=== PATIENT | male | born 1980 | race African-American/Black ===

== ENCOUNTER 2018-01-05 09:33 | Observation (INO) | payer OTHER ==
[2018-01-05 12:14] LABS: ADD MAN DIFF? NO
[2018-01-05 12:18] LABS: WHITE BLOOD COUNT 10.2 10^3/ul (4.8-10.8)
[2018-01-05 12:18] LABS: BASOPHIL # 0.1 10^3/ul (0.0-0.1); BASOPHILS % 0.8 % (0.0-2.0); EOSINOPHILS % 0.3 % (0.0-7.0); HEMATOCRIT 30.5 % (42.0-52.0); HEMOGLOBIN 10.2 g/dl (14.0-18.0); LYMPHOCYTES # 1.3 10^3/ul (0.8-2.9); LYMPHOCYTES % 12.4 % (15.0-51.0); MEAN CORPUSCULAR HEMOGLOBIN 21.3 pg (29.0-33.0); MEAN CORPUSCULAR HGB CONC 33.4 g/dl (32.0-37.0); MEAN CORPUSCULAR VOLUME 63.5 fl (82.0-101.0); MEAN PLATELET VOLUME 10.3 fl (7.4-10.4); MONOCYTE # 0.7 10^3/ul (0.3-0.9); MONOCYTES % 6.9 % (0.0-11.0); NEUTROPHIL # 8.1 10^3/ul (1.6-7.5); NEUTROPHILS % 79.2 % (39.0-77.0); NUCLEATED RED BLOOD CELLS # 0.1 10^3/ul (0.0-0.0); NUCLEATED RED BLOOD CELLS% 1.3 /100WBC (0.0-0.0); PLATELET COUNT 623 10^3/UL (140-415); RED CELL DISTRIBUTION WIDTH 21.4 % (11.5-14.5); RETICULOCYTE COUNT # 0.095 X10^6 (0.020-0.110)
[2018-01-05] MEDS: SOD CHLORIDE 0.9% 2,000 ML IV (12:18)
[2018-01-05] MEDS: HYDROmorphONE 2 MG/ML SYG IV ×2 (12:22→15:34)
[2018-01-05] MEDS: DIPHENHYDRAMINE 50 MG INJ IV ×2 (12:22→15:33)
[2018-01-05 12:29] LABS: ADD UMIC NO; UR ASCORBIC ACID NEGATIVE (NEGATIVE); UR BILIRUBIN (Dip) NEGATIVE (NEGATIVE); UR BLOOD (Dip) NEGATIVE (NEGATIVE); UR CLARITY CLEAR (CLEAR); UR COLOR COLORLESS (YELLOW); UR GLUCOSE (Dip) 3+ mg/dL (NEGATIVE); UR KETONES (Dip) TRACE mg/dL (NEGATIVE); UR LEUKOCYTE ESTERASE (Dip) NEGATIVE Leu/ul (NEGATIVE); UR NITRITE (Dip) NEGATIVE (NEGATIVE); UR SPECIFIC GRAVITY (Dip) 1.018 (1.003-1.030); UR TOTAL PROTEIN (Dip) NEGATIVE (NEGATIVE); UR UROBILINOGEN (Dip) NEGATIVE (NEGATIVE)
[2018-01-05] MEDS: LIDOCAINE 1% (MPF) 5 ML VIAL SC (12:30)
[2018-01-05 12:37] LABS: ALANINE AMINOTRANSFERASE 38 IU/L (13-69); ALBUMIN 4.2 g/dl (3.3-4.9); ALBUMIN/GLOBULIN RATIO 1.02; ALKALINE PHOSPHATASE 147 IU/L (42-121); ANION GAP 17 (8-16); ASPARTATE AMINO TRANSFERASE 26 IU/L (15-46); BILIRUBIN,INDIRECT 0.4 mg/dl (0-1.1); BILIRUBIN,TOTAL 0.4 mg/dl (0.2-1.3); BLOOD UREA NITROGEN 24 mg/dl (7-20); CALCIUM 9.6 mg/dl (8.4-10.2); CARBON DIOXIDE 22 mmol/L (21-31); CHLORIDE 97 mmol/L (97-110); CREATININE 1.06 mg/dl (0.61-1.24); PHOSPHORUS 3.8 mg/dl (2.5-4.9); POTASSIUM 5.2 mmol/L (3.5-5.1); SODIUM 131 mmol/L (135-144); TOTAL PROTEIN 8.3 g/dl (6.1-8.1)
[2018-01-05 12:49] LABS: GLUCOSE 704 mg/dl (70-220)
[2018-01-05 13:38] LABS: AADO2 Venous 50.5 mmHg; Allen Test ACCEPTAB; MODE ROOM AIR; MetHgb Venous 0.4 %; Sample Type Blood venous; Site Right Radial; Venous COHb 2.1 %; Venous Fraction OxyHgb 78.7 %; Venous Oxygen Sat 80.7 mmHG (55.0-75.0); Venous Total Hemglobin 10.4 g/dl
[2018-01-05] MEDS ORDERED: GLUCOSE GEL 15 GRAM TUBE PO ×4 (14:00→17:30)
[2018-01-05] MEDS ORDERED: DEXTROSE 50% 50 ML SYRINGE IV ×4 (14:00→17:30)
[2018-01-05] MEDS ORDERED: GLUCAGON 1 MG INJ IM ×2 (14:00→17:30)
[2018-01-05] MEDS ORDERED: GLUCOSE GEL 15 GRAM TUBE BUCCAL ×2 (14:00→17:30)
[2018-01-05] MEDS ORDERED: ONDANSETRON 4 MG INJ (15:28)
[2018-01-05] MEDS: ONDANSETRON 4 MG INJ IV (15:40)
[2018-01-05] MEDS ORDERED: ACETAMINOPHEN 325 MG TAB PO (16:00)
[2018-01-05] MEDS ORDERED: ONDANSETRON 4 MG INJ IV ×2 (16:00→18:01)
[2018-01-05] MEDS: INSULIN LISPRO 100 UNIT/ML VIAL SC (16:19)
[2018-01-05] MEDS ORDERED: NACL 0.9% 3 ML SYG IV (17:30)
[2018-01-05] MEDS ORDERED: INSULIN ASPART [NOVOLOG] 3 ML PEN SC ×2 (18:00)
[2018-01-05] MEDS ORDERED: HYDROCODONE/APAP (5/325) TAB NGT (18:30)
[2018-01-05] MEDS: HYDROmorphONE 1 MG/ML SYG IV (18:37)
[2018-01-05] MEDS ORDERED: INSULIN GLARGINE [LANtus] 3 ML PEN SC (20:00)
[2018-01-06] MEDS ORDERED: ENOXAPARIN 30 MG/0.3 ML SYG SC (09:00)
== END 2018-01-05 18:49 | disposition left against medical advice (07) ==
LOC: E/R 18:49 → MS4 01-07 23:33 → E/R 09:33 → MS4 15:33 → E/R 18:49
PROVIDERS: Internal Medicine
DX: D57.1 Sickle-cell disease without crisis (principal); E11.65 Type 2 diabetes mellitus with hyperglycemia; Z79.4 Long term (current) use of insulin
CPT/HCPCS: 36415; 71045; 80053; 81003; 82803; 82962; 83735; 84100; 85025; 85045; 93005; 96372; 96374; 96375; 96376; 99217; 99285-25

== ENCOUNTER 2018-01-18 23:02 | Inpatient (IN) | payer OTHER ==
[2018-01-18] MEDS: SOD CHLORIDE 0.9% 1,000 ML IV (23:27)
[2018-01-18] MEDS ORDERED: HYDROmorphONE 1 MG/ML SYG IV (23:27)
[2018-01-18] MEDS: LACTATED RINGER'S 1,000 ML IV (23:35)
[2018-01-18] MEDS: ONDANSETRON 4 MG INJ IV (23:35)
[2018-01-18] MEDS: DIPHENHYDRAMINE 50 MG INJ IV (23:35)
[2018-01-18] MEDS: HYDROmorphONE 0.5 MG/0.5 ML SYG IV ×2 (23:38)
[2018-01-18] MEDS: INSULIN LISPRO 100 UNIT/ML VIAL SC (23:45)
[2018-01-18 23:49] LABS: ADD MAN DIFF? NO
[2018-01-18 23:55] LABS: ABNORMAL IP MESSAGE 1; BASOPHIL # 0.1 10^3/ul (0.0-0.1); BASOPHILS % 0.6 % (0.0-2.0); EOSINOPHILS # 0.2 10^3/ul (0.0-0.5); EOSINOPHILS % 1.4 % (0.0-7.0); HEMATOCRIT 33.6 % (42.0-52.0); HEMOGLOBIN 11.1 g/dl (14.0-18.0); LYMPHOCYTES # 1.8 10^3/ul (0.8-2.9); LYMPHOCYTES % 16.5 % (15.0-51.0); MEAN CORPUSCULAR HEMOGLOBIN 21.7 pg (29.0-33.0); MEAN CORPUSCULAR VOLUME 65.6 fl (82.0-101.0); MONOCYTE # 0.7 10^3/ul (0.3-0.9); MONOCYTES % 6.4 % (0.0-11.0); NEUTROPHIL # 8.3 10^3/ul (1.6-7.5); NEUTROPHILS % 74.9 % (39.0-77.0); NUCLEATED RED BLOOD CELLS # 0.3 10^3/ul (0.0-0.0); PLATELET COUNT 849 10^3/UL (140-415); POSITIVE DIFF @See below; RED BLOOD COUNT 5.12 10^6/ul (4.70-6.10); RED CELL DISTRIBUTION WIDTH 22.5 % (11.5-14.5); RETICULOCYTE COUNT # 0.108 X10^6 (0.020-0.110); RETICULOCYTE COUNT % 2.1 % (0.5-1.5); RETICULOCYTE RBC 5.12
[2018-01-19 00:11] LABS: ALANINE AMINOTRANSFERASE 37 IU/L (13-69); ALBUMIN/GLOBULIN RATIO 1.16; ALKALINE PHOSPHATASE 154 IU/L (42-121); ANION GAP 20 (8-16); ASPARTATE AMINO TRANSFERASE 35 IU/L (15-46); BILIRUBIN,INDIRECT 0.5 mg/dl (0-1.1); BILIRUBIN,TOTAL 0.5 mg/dl (0.2-1.3); BLOOD UREA NITROGEN 15 mg/dl (7-20); CALCIUM 10.3 mg/dl (8.4-10.2); CARBON DIOXIDE 27 mmol/L (21-31); CHLORIDE 93 mmol/L (97-110); CREATININE 1.62 mg/dl (0.61-1.24); POTASSIUM 5.3 mmol/L (3.5-5.1); SODIUM 135 mmol/L (135-144); TOTAL PROTEIN 9.3 g/dl (6.1-8.1)
[2018-01-19 00:33] LABS: GLUCOSE 665 mg/dl (70-220)
[2018-01-19] MEDS: HYDROmorphONE 1 MG/ML SYG IV (04:04)
[2018-01-19] MEDS: DIPHENHYDRAMINE 50 MG INJ IV (04:24)
[2018-01-19] MEDS ORDERED: NACL 0.9% 3 ML SYG IV (05:00)
[2018-01-19] MEDS ORDERED: ONDANSETRON 4 MG INJ IV (05:00)
[2018-01-19] MEDS ORDERED: ALBUTEROL/IPRATROPIUM (NEB) 3 ML AMP HHN (05:00)
[2018-01-19] MEDS ORDERED: traMADol 50 MG TAB PO (05:00)
[2018-01-19] MEDS ORDERED: ACETAMINOPHEN 325 MG TAB PO (05:00)
[2018-01-19] MEDS ORDERED: HYDROmorphONE 2 MG TAB PO (05:00)
[2018-01-19] MEDS ORDERED: GLUCAGON 1 MG INJ IM (05:30)
[2018-01-19] MEDS ORDERED: GLUCOSE GEL 15 GRAM TUBE BUCCAL (05:30)
[2018-01-19] MEDS ORDERED: GLUCOSE GEL 15 GRAM TUBE PO ×2 (05:30)
[2018-01-19] MEDS ORDERED: DEXTROSE 50% 50 ML SYRINGE IV ×2 (05:30)
[2018-01-19 06:30] LABS: ADD MAN DIFF? NO
[2018-01-19 06:41] LABS: WHITE BLOOD COUNT 9.3 10^3/ul (4.8-10.8)
[2018-01-19 06:41] LABS: BASOPHIL # 0.1 10^3/ul (0.0-0.1); BASOPHILS % 0.9 % (0.0-2.0); EOSINOPHILS # 0.3 10^3/ul (0.0-0.5); EOSINOPHILS % 2.7 % (0.0-7.0); HEMATOCRIT 26.3 % (42.0-52.0); HEMOGLOBIN 8.7 g/dl (14.0-18.0); LYMPHOCYTES # 1.7 10^3/ul (0.8-2.9); LYMPHOCYTES % 18.1 % (15.0-51.0); MEAN CORPUSCULAR HEMOGLOBIN 21.5 pg (29.0-33.0); MEAN CORPUSCULAR HGB CONC 33.1 g/dl (32.0-37.0); MEAN CORPUSCULAR VOLUME 64.9 fl (82.0-101.0); MEAN PLATELET VOLUME 10.2 fl (7.4-10.4); MONOCYTES % 10.2 % (0.0-11.0); NEUTROPHIL # 6.3 10^3/ul (1.6-7.5); NEUTROPHILS % 67.8 % (39.0-77.0); NUCLEATED RED BLOOD CELLS # 0.3 10^3/ul (0.0-0.0); PLATELET COUNT 645 10^3/UL (140-415); RED BLOOD COUNT 4.05 10^6/ul (4.70-6.10); RED CELL DISTRIBUTION WIDTH 21.7 % (11.5-14.5)
[2018-01-19] MEDS: NA POLYST SULFON 15 GM/60 ML BTL PO (06:46)
[2018-01-19 07:03] LABS: ALANINE AMINOTRANSFERASE 31 IU/L (13-69); ALBUMIN 3.4 g/dl (3.3-4.9); ALBUMIN/GLOBULIN RATIO 1.09; ALKALINE PHOSPHATASE 93 IU/L (42-121); ANION GAP 12 (8-16); ASPARTATE AMINO TRANSFERASE 24 IU/L (15-46); BILIRUBIN,INDIRECT 0.3 mg/dl (0-1.1); BILIRUBIN,TOTAL 0.3 mg/dl (0.2-1.3); BLOOD UREA NITROGEN 18 mg/dl (7-20); CALCIUM 9.3 mg/dl (8.4-10.2); CARBON DIOXIDE 31 mmol/L (21-31); CHLORIDE 102 mmol/L (97-110); CREATININE 1.18 mg/dl (0.61-1.24); GLUCOSE 331 mg/dl (70-220); MAGNESIUM 1.7 mg/dl (1.7-2.5); PHOSPHORUS 4.4 mg/dl (2.5-4.9); POTASSIUM 4.5 mmol/L (3.5-5.1); SODIUM 140 mmol/L (135-144); TOTAL PROTEIN 6.5 g/dl (6.1-8.1)
[2018-01-19] MEDS: INSULIN ASPART [NOVOLOG] 3 ML PEN SC ×8 (08:34→20:11)
[2018-01-19] MEDS: INSULIN GLARGINE [LANtus] 3 ML PEN SC (08:36)
[2018-01-19 09:57] LABS: SODIUM,URINE RANDOM 61 mmol/L (30-90)
[2018-01-19 09:57] LABS: POTASSIUM,URINE RANDOM 10.5 mmol/L (25-125)
[2018-01-19] MEDS: HYDROmorphONE 2 MG/ML SYG IV ×4 (10:10→23:44)
[2018-01-19] MEDS: METHADONE 5 MG TAB PO (13:39)
[2018-01-19] MEDS ORDERED: HYDROmorphONE 4 MG/ML SYG IV (14:30)
[2018-01-19] MEDS: DIPHENHYDRAMINE 25 MG CAP PO (15:26)
[2018-01-19] MEDS: SOD CHLORIDE 0.9% 1,000 ML IV ×2 (15:30→22:12)
[2018-01-19 17:31] LABS: IRON 54 ug/dl (35-150)
[2018-01-19 17:40] LABS: % IRON SATURATION 13 % SAT (22-52); TOTAL IRON BINDING CAPACITY 430 ug/dl (241-421)
[2018-01-19 18:06] LABS: FERRITIN 25.3 ng/ml (17.9-464.0)
[2018-01-19 19:45] LABS: SICKLE CELL SCREEN POSITIVE (NEGATIVE)
[2018-01-20] MEDS: ACCU-CHEK XX (01:41)
[2018-01-20] MEDS: HYDROmorphONE 2 MG/ML SYG IV ×2 (04:15→08:09)
[2018-01-20 05:47] LABS: ADD MAN DIFF? NO
[2018-01-20 05:52] LABS: BASOPHIL # 0.1 10^3/ul (0.0-0.1); BASOPHILS % 0.8 % (0.0-2.0); EOSINOPHILS # 0.3 10^3/ul (0.0-0.5); EOSINOPHILS % 3.9 % (0.0-7.0); HEMATOCRIT 26.2 % (42.0-52.0); HEMOGLOBIN 8.7 g/dl (14.0-18.0); MEAN CORPUSCULAR HEMOGLOBIN 21.6 pg (29.0-33.0); MEAN CORPUSCULAR HGB CONC 33.2 g/dl (32.0-37.0); MEAN CORPUSCULAR VOLUME 65.2 fl (82.0-101.0); MEAN PLATELET VOLUME 9.8 fl (7.4-10.4); MONOCYTE # 0.9 10^3/ul (0.3-0.9); MONOCYTES % 11.4 % (0.0-11.0); NEUTROPHIL # 3.7 10^3/ul (1.6-7.5); NEUTROPHILS % 45.6 % (39.0-77.0); NUCLEATED RED BLOOD CELLS # 0.3 10^3/ul (0.0-0.0); NUCLEATED RED BLOOD CELLS% 3.8 /100WBC (0.0-0.0); PLATELET COUNT 630 10^3/UL (140-415); RED BLOOD COUNT 4.02 10^6/ul (4.70-6.10); RED CELL DISTRIBUTION WIDTH 21.5 % (11.5-14.5)
[2018-01-20 06:21] LABS: ALANINE AMINOTRANSFERASE 32 IU/L (13-69); ALBUMIN 3.2 g/dl (3.3-4.9); ALKALINE PHOSPHATASE 77 IU/L (42-121); ANION GAP 11 (8-16); ASPARTATE AMINO TRANSFERASE 20 IU/L (15-46); BILIRUBIN,INDIRECT 0.3 mg/dl (0-1.1); BILIRUBIN,TOTAL 0.3 mg/dl (0.2-1.3); BLOOD UREA NITROGEN 17 mg/dl (7-20); CARBON DIOXIDE 28 mmol/L (21-31); CHLORIDE 105 mmol/L (97-110); CREATININE 0.94 mg/dl (0.61-1.24); GLUCOSE 284 mg/dl (70-220); MAGNESIUM 1.8 mg/dl (1.7-2.5); PHOSPHORUS 3.2 mg/dl (2.5-4.9); POTASSIUM 4.2 mmol/L (3.5-5.1); SODIUM 140 mmol/L (135-144); TOTAL PROTEIN 6.4 g/dl (6.1-8.1)
[2018-01-20] MEDS: SOD CHLORIDE 0.9% 1,000 ML IV (06:34)
[2018-01-20] MEDS: INSULIN ASPART [NOVOLOG] 3 ML PEN SC ×2 (08:05→08:06)
[2018-01-20] MEDS: INSULIN GLARGINE [LANtus] 3 ML PEN SC (08:06)
[2018-01-21 04:48] LABS: HEMATOCRIT 40.3 % (38.5-50.0); MCH 20.7 pg (27.0-33.0); MCV 75.8 fL (80.0-100.0); RDW 22.7 % (11.0-15.0); RED BLOOD CELL COUNT 5.32 Million/uL (4.20-5.80)
== END 2018-01-20 11:17 | disposition home or self-care (01) | DRG 812 ==
LOC: E/R 23:02 → MS3 01-19 04:57
PROVIDERS: Internal Medicine
DX: D57.00 Hb-SS disease with crisis, unspecified (principal); N17.9 Acute kidney failure, unspecified; E11.65 Type 2 diabetes mellitus with hyperglycemia; Z79.4 Long term (current) use of insulin; M25.462 Effusion, left knee; Z76.5 Malingerer [conscious simulation]
CPT/HCPCS: 80053; 82436; 82728; 82962; 83020; 83540; 83735; 84100; 84133; 84300; 85025; 85045; 85660; 93005; 96372; 96374; 96375; 96376; 99291-25

== ENCOUNTER 2018-03-10 13:39 | Emergency (ER) | payer OTHER ==
[2018-03-10] MEDS ORDERED: DIPHENHYDRAMINE 50 MG INJ (15:05)
[2018-03-10 15:14] LABS: ADD MAN DIFF? NO
[2018-03-10 15:17] LABS: ABNORMAL IP MESSAGE 1; BASOPHIL # 0.1 10^3/ul (0.0-0.1); BASOPHILS % 1.4 % (0.0-2.0); EOSINOPHILS % 0.7 % (0.0-7.0); HEMATOCRIT 26.3 % (42.0-52.0); HEMOGLOBIN 8.9 g/dl (14.0-18.0); LYMPHOCYTES # 1.2 10^3/ul (0.8-2.9); LYMPHOCYTES % 28.7 % (15.0-51.0); MEAN CORPUSCULAR HEMOGLOBIN 23.2 pg (29.0-33.0); MEAN CORPUSCULAR HGB CONC 33.8 g/dl (32.0-37.0); MEAN CORPUSCULAR VOLUME 68.5 fl (82.0-101.0); MEAN PLATELET VOLUME 8.7 fl (7.4-10.4); MONOCYTE # 0.4 10^3/ul (0.3-0.9); MONOCYTES % 8.5 % (0.0-11.0); NEUTROPHIL # 2.6 10^3/ul (1.6-7.5); NEUTROPHILS % 60.5 % (39.0-77.0); NUCLEATED RED BLOOD CELLS # 0.3 10^3/ul (0.0-0.0); NUCLEATED RED BLOOD CELLS% 6.6 /100WBC (0.0-0.0); PLATELET COUNT 233 10^3/UL (140-415); POSITIVE DIFF @See below; RED BLOOD COUNT 3.84 10^6/ul (4.70-6.10)
[2018-03-10 15:17] LABS: WHITE BLOOD COUNT 4.2 10^3/ul (4.8-10.8)
[2018-03-10] MEDS: HYDROmorphONE 1 MG/5 ML IV SYRINGE IV ×2 (15:26→16:22)
[2018-03-10] MEDS: SOD CHLORIDE 0.9% 2,000 ML IV (15:26)
[2018-03-10] MEDS: DIPHENHYDRAMINE 50 MG INJ IV ×2 (15:26→16:22)
[2018-03-10] MEDS: ONDANSETRON 4 MG INJ IV (15:26)
[2018-03-10 15:30] LABS: ANION GAP 13 (8-16); BLOOD UREA NITROGEN 19 mg/dl (7-20); CALCIUM 9.2 mg/dl (8.4-10.2); CARBON DIOXIDE 26 mmol/L (21-31); CHLORIDE 100 mmol/L (97-110); CREATININE 0.94 mg/dl (0.61-1.24); POTASSIUM 4.9 mmol/L (3.5-5.1); SODIUM 134 mmol/L (135-144)
[2018-03-10 15:33] LABS: LACTIC ACID 1.5 mmol/L (0.5-2.0)
[2018-03-10 15:34] LABS: GLUCOSE 540 mg/dl (70-220)
[2018-03-10] MEDS: INSULIN LISPRO 100 UNIT/ML VIAL SC (16:21)
== END 2018-03-10 16:51 | disposition home or self-care (01) ==
LOC: E/R 13:39
DX: D57.00 Hb-SS disease with crisis, unspecified (principal); E11.65 Type 2 diabetes mellitus with hyperglycemia; I10 Essential (primary) hypertension; Z79.4 Long term (current) use of insulin
CPT/HCPCS: 36415; 71045; 80048; 83605; 85025; 85660; 96372; 96374; 96375; 96376; 99284-25

== ENCOUNTER 2018-03-29 10:27 | Emergency (ER) | payer OTHER ==
[2018-03-29] MEDS ORDERED: LACTATED RINGER'S 1,000 ML IV (10:35)
[2018-03-29] MEDS ORDERED: SOD CHLORIDE 0.9% 2,000 ML IV (10:35)
== END 2018-03-29 12:03 | disposition home or self-care (01) ==
LOC: E/R 10:27
DX: G89.29 Other chronic pain (principal); E11.65 Type 2 diabetes mellitus with hyperglycemia; I10 Essential (primary) hypertension; Z79.4 Long term (current) use of insulin
CPT/HCPCS: 82962; 99284-25

== ENCOUNTER 2018-04-12 16:53 | Inpatient (IN) | payer OTHER ==
[2018-04-12] MEDS: HYDROmorphONE 1 MG/5 ML IV SYRINGE IV ×2 (17:02→19:03)
[2018-04-12] MEDS: ONDANSETRON 4 MG INJ IV ×2 (17:02→19:04)
[2018-04-12] MEDS: SOD CHLORIDE 0.9% 1,000 ML IV (17:02)
[2018-04-12] MEDS: DIPHENHYDRAMINE 50 MG INJ IV ×2 (18:15→19:04)
[2018-04-12 18:20] LABS: ABNORMAL IP MESSAGE 1; HEMATOCRIT 27.3 % (42.0-52.0); HEMOGLOBIN 9.5 g/dl (14.0-18.0); MEAN CORPUSCULAR HEMOGLOBIN 26.7 pg (29.0-33.0); MEAN CORPUSCULAR HGB CONC 34.8 g/dl (32.0-37.0); MEAN CORPUSCULAR VOLUME 76.7 fl (82.0-101.0); MEAN PLATELET VOLUME 11.4 fl (7.4-10.4); PLATELET COUNT 862 10^3/UL (140-415); POSITIVE DIFF @See below; RED BLOOD COUNT 3.56 10^6/ul (4.70-6.10); RED CELL DISTRIBUTION WIDTH 26.7 % (11.5-14.5); RETICULOCYTE COUNT # 0.148 X10^6 (0.020-0.110); RETICULOCYTE COUNT % 4.2 % (0.5-1.5); RETICULOCYTE RBC 3.56
[2018-04-12 18:20] LABS: WHITE BLOOD COUNT 8.2 10^3/ul (4.8-10.8)
[2018-04-12 18:25] LABS: ADD MAN DIFF? YES
[2018-04-12 18:44] LABS: ALANINE AMINOTRANSFERASE 26 IU/L (13-69); ALBUMIN 4.5 g/dl (3.3-4.9); ALBUMIN/GLOBULIN RATIO 1.21; ALKALINE PHOSPHATASE 147 IU/L (42-121); ANION GAP 20 (8-16); ASPARTATE AMINO TRANSFERASE 18 IU/L (15-46); BILIRUBIN,INDIRECT 0.5 mg/dl (0-1.1); BILIRUBIN,TOTAL 0.5 mg/dl (0.2-1.3); BLOOD UREA NITROGEN 29 mg/dl (7-20); CARBON DIOXIDE 23 mmol/L (21-31); CHLORIDE 95 mmol/L (97-110); CREATININE 1.32 mg/dl (0.61-1.24); POTASSIUM 5.8 mmol/L (3.5-5.1); SODIUM 132 mmol/L (135-144); TOTAL PROTEIN 8.2 g/dl (6.1-8.1)
[2018-04-12 18:46] LABS: INR 0.89; PARTIAL THROMBOPLASTIN TIME 25.6 Sec (25.0-35.0); PROTIME 12.1 Sec (11.9-14.9); PT RATIO 0.9
[2018-04-12 19:00] LABS: GLUCOSE 819 mg/dl (70-220)
[2018-04-12 19:02] LABS: ANISOCYTOSIS 2+ (0-0); BASOPHILS % (M) 1 % (0-2); ERYTHROBLAST% (NRBC) (M) 7 % (0-0); HYPOCHROMASIA 2+ (0-0); LYMPHOCYTES #M 2.1 10^3/ul (0.8-2.9); LYMPHOCYTES % (M) 26 % (15-51); MICROCYTOSIS 2+ (0-0); MONOCYTE #M 0.2 10^3/ul (0.3-0.9); MONOCYTES % (M) 3 % (0-11); PLATELET ESTIMATE INCREASED; POLYCHROMASIA 1+ (0-0); SEGMENTED NEUTROPHILS (M) % 70 % (39-77); SMUDGE%M 3 % (0-0)
[2018-04-12 19:28] LABS: AADO2 Arterial 33.6 mmHg (7.0-24.0); Allen Test ACCEPTAB; Arterial Base Excess -3.7 mmol/L (-3.0-3); Arterial Blood Gas Oxygen Sat 98.1 mmHG (95.0-98.0); Arterial Fraction of Oxyhgb 95.7 % (93.0-99.0); Arterial HCO3 20.7 mmol/L (22.0-26.0); Arterial MetHb 0.4 % (0.0-1.5); Arterial Total Hemglobin 10.2 g/dl (12.0-18.0); Arterial pCO2 34.6 mmhg (35-45); MODE NASAL CANNULA; Site Right Radial
[2018-04-12 19:36] LABS: HEMOGLOBIN A1C 10.1 % (0-5.9)
[2018-04-12] MEDS: INSULIN REGULAR 10 ML INJ IV (20:18)
[2018-04-12] MEDS: FUROSEMIDE 40 MG INJ IV (20:19)
[2018-04-12] MEDS: SOD CHLORIDE 0.9% 2,000 ML IV (20:20)
[2018-04-12] MEDS: NA BICARBONATE 8.4% 50 ML SYG IV (20:20)
[2018-04-12] MEDS: CA CHLORIDE 10% 10 ML SYRINGE IV (20:20)
[2018-04-12 21:07] LABS: ADD UMIC NO; UR ASCORBIC ACID NEGATIVE (NEGATIVE); UR BILIRUBIN (Dip) NEGATIVE (NEGATIVE); UR BLOOD (Dip) NEGATIVE (NEGATIVE); UR CLARITY CLEAR (CLEAR); UR COLOR COLORLESS (YELLOW); UR GLUCOSE (Dip) 3+ mg/dL (NEGATIVE); UR KETONES (Dip) TRACE mg/dL (NEGATIVE); UR LEUKOCYTE ESTERASE (Dip) NEGATIVE Leu/ul (NEGATIVE); UR NITRITE (Dip) NEGATIVE (NEGATIVE); UR SPECIFIC GRAVITY (Dip) 1.018 (1.003-1.030); UR TOTAL PROTEIN (Dip) NEGATIVE (NEGATIVE); UR UROBILINOGEN (Dip) NEGATIVE (NEGATIVE)
[2018-04-12] MEDS ORDERED: ACETAMINOPHEN 325 MG TAB PO ×2 (22:00→23:30)
[2018-04-12] MEDS ORDERED: ONDANSETRON 4 MG INJ IV ×2 (22:00→23:30)
[2018-04-12 22:01] LABS: CANNABINOIDS Negative (NEGATIVE); OPIATES Negative (NEGATIVE)
[2018-04-12 22:03] LABS: AMPHETAMINE/METHAMPHETAMINE Positive (NEGATIVE); BARBITURATES Negative (NEGATIVE); BENZODIAZEPINES Negative (NEGATIVE); COCAINE Positive (NEGATIVE)
[2018-04-12] MEDS ORDERED: HYDROCODONE/APAP (5/325) TAB PO (23:30)
[2018-04-12] MEDS ORDERED: DIPHENHYDRAMINE 25 MG CAP PO (23:30)
[2018-04-12] MEDS ORDERED: SOD CHLORIDE 0.9% 1,000 ML IV (23:30)
[2018-04-12] MEDS: INSULIN GLARGINE [LANtus] 3 ML PEN SC (23:40)
[2018-04-12] MEDS ORDERED: GLUCOSE GEL 15 GRAM TUBE BUCCAL (23:45)
[2018-04-12] MEDS ORDERED: GLUCAGON 1 MG INJ IM (23:45)
[2018-04-12] MEDS ORDERED: DEXTROSE 50% 50 ML SYRINGE IV ×2 (23:45)
[2018-04-12] MEDS ORDERED: GLUCOSE GEL 15 GRAM TUBE PO ×2 (23:45)
[2018-04-13] MEDS: SOD CHLORIDE 0.9% 1,000 ML IV
[2018-04-13] MEDS: NA POLYST SULFON 15 GM/60 ML BTL PO (00:30)
[2018-04-13] MEDS: HYDROmorphONE 4 MG TAB PO ×3 (05:04→12:53)
[2018-04-13] MEDS: LORAZEPAM 2 MG INJ IV (05:04)
[2018-04-13] MEDS: INSULIN ASPART [NOVOLOG] 3 ML PEN SC ×4 (08:00→12:25)
[2018-04-13] MEDS: DIPHENHYDRAMINE 50 MG INJ IV (11:54)
[2018-04-13] MEDS: SOD CHLORIDE 0.45% 1,000 ML IV ×3 (11:59→21:21)
[2018-04-13] MEDS ORDERED: INSULIN ASPART [NOVOLOG] 3 ML PEN SC (12:00)
[2018-04-13 12:34] LABS: ADD MAN DIFF? NO
[2018-04-13 12:38] LABS: ABNORMAL IP MESSAGE 1; BASOPHIL # 0.1 10^3/ul (0.0-0.1); EOSINOPHILS % 0.4 % (0.0-7.0); HEMATOCRIT 35.1 % (42.0-52.0); LYMPHOCYTES # 1.3 10^3/ul (0.8-2.9); LYMPHOCYTES % 15.1 % (15.0-51.0); MEAN CORPUSCULAR HEMOGLOBIN 26.5 pg (29.0-33.0); MEAN CORPUSCULAR HGB CONC 34.2 g/dl (32.0-37.0); MEAN CORPUSCULAR VOLUME 77.5 fl (82.0-101.0); MEAN PLATELET VOLUME 10.2 fl (7.4-10.4); MONOCYTE # 0.5 10^3/ul (0.3-0.9); MONOCYTES % 6.2 % (0.0-11.0); NEUTROPHIL # 6.4 10^3/ul (1.6-7.5); NEUTROPHILS % 76.9 % (39.0-77.0); NUCLEATED RED BLOOD CELLS # 0.5 10^3/ul (0.0-0.0); PLATELET COUNT 996 10^3/UL (140-415); POSITIVE DIFF @See below; RED BLOOD COUNT 4.53 10^6/ul (4.70-6.10); RED CELL DISTRIBUTION WIDTH 26.4 % (11.5-14.5)
[2018-04-13 12:38] LABS: WHITE BLOOD COUNT 8.3 10^3/ul (4.8-10.8)
[2018-04-13 12:48] LABS: HEMOGLOBIN A1C 8.8 % (0-5.9)
[2018-04-13 12:58] LABS: ALANINE AMINOTRANSFERASE 29 IU/L (13-69); ALBUMIN 4.6 g/dl (3.3-4.9); ALBUMIN/GLOBULIN RATIO 1.09; ALKALINE PHOSPHATASE 148 IU/L (42-121); ANION GAP 21 (8-16); ASPARTATE AMINO TRANSFERASE 21 IU/L (15-46); BILIRUBIN,INDIRECT 0.8 mg/dl (0-1.1); BILIRUBIN,TOTAL 0.8 mg/dl (0.2-1.3); BLOOD UREA NITROGEN 28 mg/dl (7-20); CALCIUM 10.8 mg/dl (8.4-10.2); CARBON DIOXIDE 27 mmol/L (21-31); CHLORIDE 96 mmol/L (97-110); CREATININE 1.23 mg/dl (0.61-1.24); MAGNESIUM 2.2 mg/dl (1.7-2.5); PHOSPHORUS 4.8 mg/dl (2.5-4.9); SODIUM 138 mmol/L (135-144); TOTAL PROTEIN 8.8 g/dl (6.1-8.1)
[2018-04-13 13:05] LABS: GLUCOSE 600 mg/dl (70-220)
[2018-04-13 13:09] LABS: GLUCOSE 592 mg/dl (70-220)
[2018-04-13] MEDS ORDERED: DEXTROSE 50% 50 ML SYRINGE IV ×2 (13:30)
[2018-04-13] MEDS: ACCU-CHEK XX ×10 (14:30→23:04)
[2018-04-13 16:26] LABS: OSMOLALITY 314 mOsm/kg (280-295)
[2018-04-13] MEDS: INSULIN HUMAN REGULAR 100 UNIT in SOD CHLORIDE 0.9% 99 ML IV (17:38)
[2018-04-13] MEDS: HYDROmorphONE 0.2 MG/ML PCA IV (17:41)
[2018-04-13] MEDS: HYDROCODONE/APAP (5/325) TAB PO ×2 (19:55→21:41)
[2018-04-13] MEDS: DIPHENHYDRAMINE 25 MG CAP PO (19:56)
[2018-04-13] MEDS ORDERED: INSULIN GLARGINE [LANtus] 3 ML PEN SC (20:00)
[2018-04-13] MEDS: LIDOCAINE 1% (MPF) 5 ML VIAL SC (21:21)
[2018-04-13] MEDS: DEXTROSE 5%-0.45% NACL 1,000 ML IV (21:57)
[2018-04-14] MEDS: ACCU-CHEK XX (00:02)
[2018-04-14] MEDS: DIPHENHYDRAMINE 50 MG INJ IV (01:23)
[2018-04-14] MEDS: DEXTROSE 5%-0.45% NACL 1,000 ML IV ×2 (02:45→08:00)
[2018-04-14] MEDS: HYDROmorphONE 0.2 MG/ML PCA IV ×3 (03:57→20:53)
[2018-04-14] MEDS: INSULIN ASPART [NOVOLOG] 3 ML PEN SC ×9 (05:15→20:20)
[2018-04-14 06:01] LABS: ANION GAP 13 (8-16); BLOOD UREA NITROGEN 27 mg/dl (7-20); CALCIUM 8.8 mg/dl (8.4-10.2); CARBON DIOXIDE 27 mmol/L (21-31); CHLORIDE 102 mmol/L (97-110); GLUCOSE 331 mg/dl (70-220); PHOSPHORUS 4.7 mg/dl (2.5-4.9); POTASSIUM 4.7 mmol/L (3.5-5.1); SODIUM 137 mmol/L (135-144)
[2018-04-14 06:28] LABS: ADD MAN DIFF? NO
[2018-04-14 06:36] LABS: ABNORMAL IP MESSAGE 1; BASOPHIL # 0.1 10^3/ul (0.0-0.1); BASOPHILS % 0.8 % (0.0-2.0); EOSINOPHILS # 0.2 10^3/ul (0.0-0.5); HEMATOCRIT 27.5 % (42.0-52.0); HEMOGLOBIN 9.1 g/dl (14.0-18.0); LYMPHOCYTES % 32.8 % (15.0-51.0); MEAN CORPUSCULAR HEMOGLOBIN 25.6 pg (29.0-33.0); MEAN CORPUSCULAR HGB CONC 33.1 g/dl (32.0-37.0); MEAN CORPUSCULAR VOLUME 77.5 fl (82.0-101.0); MEAN PLATELET VOLUME 10.7 fl (7.4-10.4); MONOCYTE # 0.6 10^3/ul (0.3-0.9); MONOCYTES % 6.1 % (0.0-11.0); NEUTROPHIL # 5.3 10^3/ul (1.6-7.5); NEUTROPHILS % 57.9 % (39.0-77.0); NUCLEATED RED BLOOD CELLS # 0.4 10^3/ul (0.0-0.0); NUCLEATED RED BLOOD CELLS% 4.5 /100WBC (0.0-0.0); PLATELET COUNT 786 10^3/UL (140-415); POSITIVE DIFF @See below; RED BLOOD COUNT 3.55 10^6/ul (4.70-6.10); RED CELL DISTRIBUTION WIDTH 25.4 % (11.5-14.5)
[2018-04-14 06:36] LABS: WHITE BLOOD COUNT 9.2 10^3/ul (4.8-10.8)
[2018-04-14 06:52] LABS: MAGNESIUM 1.7 mg/dl (1.7-2.5)
[2018-04-14] MEDS: SOD CHLORIDE 0.45% 1,000 ML IV ×4 (07:01→22:11)
[2018-04-14] MEDS ORDERED: INSULIN GLARGINE [LANtus] 3 ML PEN SC (08:00)
[2018-04-14] MEDS ORDERED: SOD CHLORIDE 0.45% 1,000 ML IV (09:07)
[2018-04-14] MEDS ORDERED: hydrOXYzine HCL 25 MG TAB PO (09:30)
[2018-04-14] MEDS: DIPHENHYDRAMINE 50 MG CAP PO (17:31)
[2018-04-14 17:36] LABS: ANION GAP 13 (8-16); BLOOD UREA NITROGEN 22 mg/dl (7-20); CALCIUM 8.9 mg/dl (8.4-10.2); CARBON DIOXIDE 28 mmol/L (21-31); CHLORIDE 98 mmol/L (97-110); CREATININE 0.92 mg/dl (0.61-1.24); PHOSPHORUS 4.5 mg/dl (2.5-4.9); POTASSIUM 5.4 mmol/L (3.5-5.1); SODIUM 134 mmol/L (135-144)
[2018-04-14 17:40] LABS: GLUCOSE 432 mg/dl (70-220)
[2018-04-14] MEDS: NA POLYST SULFON 15 GM/60 ML BTL PO (20:21)
[2018-04-15] MEDS: INSULIN ASPART [NOVOLOG] 3 ML PEN SC ×7 (02:25→17:19)
[2018-04-15] MEDS ORDERED: PENDING SANTYL ORDER FOR WOUND CARE XX (03:00)
[2018-04-15 03:17] LABS: ADD MAN DIFF? NO
[2018-04-15 03:20] LABS: WHITE BLOOD COUNT 8.5 10^3/ul (4.8-10.8)
[2018-04-15 03:20] LABS: ABNORMAL IP MESSAGE 1; BASOPHIL # 0.1 10^3/ul (0.0-0.1); BASOPHILS % 0.6 % (0.0-2.0); EOSINOPHILS # 0.3 10^3/ul (0.0-0.5); EOSINOPHILS % 3.7 % (0.0-7.0); HEMATOCRIT 27.7 % (42.0-52.0); HEMOGLOBIN 9.6 g/dl (14.0-18.0); LYMPHOCYTES % 23.6 % (15.0-51.0); MEAN CORPUSCULAR HEMOGLOBIN 26.9 pg (29.0-33.0); MEAN CORPUSCULAR HGB CONC 34.7 g/dl (32.0-37.0); MEAN CORPUSCULAR VOLUME 77.6 fl (82.0-101.0); MEAN PLATELET VOLUME 9.8 fl (7.4-10.4); MONOCYTE # 0.5 10^3/ul (0.3-0.9); MONOCYTES % 5.7 % (0.0-11.0); NEUTROPHIL # 5.6 10^3/ul (1.6-7.5); NUCLEATED RED BLOOD CELLS # 0.3 10^3/ul (0.0-0.0); NUCLEATED RED BLOOD CELLS% 3.7 /100WBC (0.0-0.0); PLATELET COUNT 838 10^3/UL (140-415); POSITIVE DIFF @See below; RED BLOOD COUNT 3.57 10^6/ul (4.70-6.10); RED CELL DISTRIBUTION WIDTH 24.9 % (11.5-14.5); RETICULOCYTE COUNT % 3.4 % (0.5-1.5); RETICULOCYTE RBC 3.57
[2018-04-15 03:46] LABS: ALANINE AMINOTRANSFERASE 21 IU/L (13-69); ALBUMIN 3.6 g/dl (3.3-4.9); ALKALINE PHOSPHATASE 101 IU/L (42-121); ANION GAP 13 (8-16); ASPARTATE AMINO TRANSFERASE 27 IU/L (15-46); BILIRUBIN,INDIRECT 0.4 mg/dl (0-1.1); BILIRUBIN,TOTAL 0.4 mg/dl (0.2-1.3); BLOOD UREA NITROGEN 17 mg/dl (7-20); CALCIUM 8.7 mg/dl (8.4-10.2); CARBON DIOXIDE 26 mmol/L (21-31); CHLORIDE 101 mmol/L (97-110); CREATININE 0.84 mg/dl (0.61-1.24); GLUCOSE 377 mg/dl (70-220); MAGNESIUM 1.7 mg/dl (1.7-2.5); PHOSPHORUS 3.2 mg/dl (2.5-4.9); POTASSIUM 4.6 mmol/L (3.5-5.1); SODIUM 135 mmol/L (135-144); TOTAL PROTEIN 7.2 g/dl (6.1-8.1)
[2018-04-15] MEDS: SOD CHLORIDE 0.45% 1,000 ML IV ×5 (04:08→17:17)
[2018-04-15] MEDS: HYDROmorphONE 0.2 MG/ML PCA IV ×2 (06:56→12:31)
[2018-04-15] MEDS: ONDANSETRON 4 MG INJ IV ×2 (07:07→17:39)
[2018-04-15] MEDS ORDERED: INSULIN GLARGINE [LANtus] 3 ML PEN SC (08:00)
[2018-04-15] MEDS: INSULIN GLARGINE [LANtus] 3 ML PEN SC (08:54)
[2018-04-15] MEDS: HYDROCODONE/APAP (5/325) TAB PO (11:09)
[2018-04-15 17:16] LABS: C-PEPTIDE 0.41 ng/mL (0.80-3.85)
[2018-04-15] MEDS: DIPHENHYDRAMINE 50 MG CAP PO (18:23)
== END 2018-04-15 19:00 | disposition left against medical advice (07) | DRG 812 ==
LOC: ICU 04-13 15:50 → E/R 16:53 → PP2 04-14 16:32 → ICU 04-13 16:01 → MS4 21:38
PROVIDERS: Internal Medicine
DX: D57.00 Hb-SS disease with crisis, unspecified (principal); N17.9 Acute kidney failure, unspecified; E87.5 Hyperkalemia; D47.3 Essential (hemorrhagic) thrombocythemia; F15.10 Other stimulant abuse, uncomplicated; E10.65 Type 1 diabetes mellitus with hyperglycemia; Z79.4 Long term (current) use of insulin
CPT/HCPCS: 36600; 71045; 80048; 80053; 80076; 80307; 81003; 82803; 82947; 82962; 83036; 83735; 83930; 84100; 84681; 85025; 85045; 85610; 85730; 86337; 87081; 93005; 96374; 96375; 96376; 99285-25

== ENCOUNTER 2019-02-11 01:54 | Emergency (ER) | payer SELFPAY, OTHER ==
[2019-02-11] MEDS: DIPHENHYDRAMINE 50 MG INJ IV ×2 (02:54→05:19)
[2019-02-11] MEDS: HYDROmorphONE 2 MG/ML SYG IV ×2 (02:54→05:19)
[2019-02-11 02:57] LABS: ABNORMAL IP MESSAGE 1; HEMATOCRIT 31.4 % (42.0-52.0); HEMOGLOBIN 10.3 g/dl (14.0-18.0); MEAN CORPUSCULAR HEMOGLOBIN 24.1 pg (29.0-33.0); MEAN CORPUSCULAR HGB CONC 32.8 g/dl (32.0-37.0); MEAN CORPUSCULAR VOLUME 73.4 fl (82.0-101.0); MEAN PLATELET VOLUME 11.4 fl (7.4-10.4); NUCLEATED RED BLOOD CELLS% 1.3 /100WBC (0.0-0.0); PLATELET COUNT 361 10^3/UL (140-415); POSITIVE DIFF @See below; RED BLOOD COUNT 4.28 10^6/ul (4.70-6.10); RED CELL DISTRIBUTION WIDTH 21.2 % (11.5-14.5); RETICULOCYTE COUNT # 0.119 X10^6 (0.020-0.110); RETICULOCYTE COUNT % 2.8 % (0.5-1.5); RETICULOCYTE RBC 4.28
[2019-02-11 02:57] LABS: WHITE BLOOD COUNT 8.5 10^3/ul (4.8-10.8)
[2019-02-11 03:05] LABS: ADD MAN DIFF? YES
[2019-02-11 03:16] LABS: AMPHETAMINE/METHAMPHETAMINE POSITIVE (NEGATIVE); BARBITURATES NEGATIVE (NEGATIVE); BENZODIAZEPINES NEGATIVE (NEGATIVE); CANNABINOIDS NEGATIVE (NEGATIVE); COCAINE NEGATIVE (NEGATIVE); OPIATES NEGATIVE (NEGATIVE)
[2019-02-11 04:28] LABS: ANISOCYTOSIS 2+ (0-0); BAND NEUTROPHILS % (M) 1 % (0-4); EOSINOPHILS % (M) 3 % (0-7); ERYTHROBLAST% (NRBC) (M) 4 % (0-0); GIANT THROMBO% (M) 1 % (0-0); HYPOCHROMASIA 3+ (0-0); LYMPHOCYTES #M 0.7 10^3/ul (0.8-2.9); LYMPHOCYTES % (M) 9 % (15-51); MICROCYTOSIS 1+ (0-0); MONOCYTE #M 0.3 10^3/ul (0.3-0.9); MONOCYTES % (M) 4 % (0-11); PLATELET ESTIMATE NORMAL; POIKILOCYTOSIS 1+ (0-0); POLYCHROMASIA 3+ (0-0); SEG NEUT #M 7.1 10^3/ul (1.6-7.5); SEGMENTED NEUTROPHILS (M) % 83 % (39-77); SMUDGE%M 6 % (0-0)
[2019-02-11] MEDS: SOD CHLORIDE 0.9% 1,000 ML IV ×3 (05:18→06:23)
[2019-02-11] MEDS: INSULIN REGULAR, HUMAN 100 UNIT/1 ML 3ML VIAL SC (05:21)
[2019-02-11 05:34] LABS: ANION GAP 15 (5-13); BLOOD UREA NITROGEN 24 mg/dl (7-20); CALCIUM 9.2 mg/dl (8.4-10.2); CARBON DIOXIDE 27 mmol/L (21-31); CHLORIDE 94 mmol/L (97-110); CREATININE 1.15 mg/dl (0.61-1.24); Estimated GFR > 60 mL/min (>60); POTASSIUM 4.8 mmol/L (3.5-5.1); SODIUM 136 mmol/L (135-144)
[2019-02-11 05:46] LABS: GLUCOSE 640 mg/dl (70-220)
[2019-02-11] MEDS ORDERED: DEXTROSE 50% 50 ML SYRINGE IV (06:00)
[2019-02-11 06:03] LABS: ETHANOL < 10.0 mg/dl (0-0)
[2019-02-11] MEDS: INSULIN REGULAR, HUMAN 100 UNIT/1 ML 3ML VIAL IVP (06:29)
[2019-02-11] MEDS: HYDROCODONE/APAP (10/325) TAB PO (07:54)
== END 2019-02-11 09:00 | disposition home or self-care (01) ==
LOC: E/R 01:54
DX: D57.1 Sickle-cell disease without crisis (principal); E11.65 Type 2 diabetes mellitus with hyperglycemia; E86.0 Dehydration; F15.10 Other stimulant abuse, uncomplicated; Z79.4 Long term (current) use of insulin; Z91.14 Patient's other noncompliance with medication regimen
CPT/HCPCS: 71045; 80048; 80307; 82962; 85025; 85045; 93005; 96361; 96372; 96374; 96375; 96376; 99285-25